=== PATIENT | male | born 2000 | race African-American/Black ===

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

== ENCOUNTER 2018-09-23 14:22 | Emergency (ER) | payer SELFPAY ==
[2018-09-23] MEDS ORDERED: HYDROCODONE/ACETAMINOPHEN 5-325 MG TABLET PO ONE ×2 (15:12→15:32)
--- NOTE | 2018-09-23 15:15 | ER Document Report ---
ED Medical Screen (RME) - General Chief Complaint: Penile Discharge Stated Complaint: TESTICULAR PAIN/SWELLING Time Seen by Provider: 09/23/18 15:06 Mode of Arrival: Ambulatory Information source: Patient TRAVEL OUTSIDE OF THE [place] IN LAST 30 DAYS: No - HPI Patient complains to provider of: LEFT TESTICULAR PAIN Notes: 09/23/18 15:14 Patient is here with complaints of penile discharge and left testicular pain. He states left testicular pain started approximately a week ago. He states that the testicle is swollen. A few days ago he started having some green discharge from his penis. No dysuria. No fever. States the pain is constant and moderate to severe. He denies any injury. He states that he has not been sexually active for 6 months. He does have a prior history of lymphoma which is currently in remission. Exam No distress, nontoxic-appearing. Lungs clear and equal throughout. Left testicle swollen, tender and hard to the touch. Circumcised penis, no lesions or obvious discharge at this time. Plan UA, gonorrhea chlamydia, ultrasound of the scrotum, [place] for pain control. An initial examination was made on the patient as part of the triage process, and it was determined a more comprehensive evaluation was necessary. Initial labs were ordered and patient was transferred to another provider in the ED who assumed care and finished evaluation and plan. - Related Data Allergies/Adverse Reactions: lorazepam [From Ativan] Adverse Reaction (Verified 09/23/18 14:27) ondansetron [From Zofran (as hydrochloride)] Adverse Reaction (Verified 09/23/18 14:27) Vomiting Past Medical History - Social History Chew tobacco use (# tins/day): No Frequency of alcohol use: None Drug Abuse: None Family history: Reviewed & Not Pertinent Pulmonary Medical History: Reports: Hx Asthma Neurological Medical History: Reports: Hx Migraine Renal/ Medical History: Denies: Hx Peritoneal Dialysis Malignancy Medical History: 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 GI Medical History: Reports: Hx Gastroesophageal Reflux Disease Psychiatric Medical History: Reports: Hx Bipolar Disorder, Hx Depression Past Surgical History: Reports: Hx Myringotomy, Hx Vascular Surgery - port central line, and removal of both - Immunizations Immunizations up to date: Yes Hx Diphtheria, Pertussis, Tetanus Vaccination: Yes Physical Exam - Vital signs Vitals: Temp Pulse Resp BP Pulse Ox 98.8 F 90 16 114/62 98 09/23/18 14:35 09/23/18 14:35 09/23/18 14:35 09/23/18 14:35 09/23/18 14:35 Course - Vital Signs Vital signs: Temp Pulse Resp BP Pulse Ox 98.8 F 90 16 114/62 98 09/23/18 14:35 09/23/18 14:35 09/23/18 14:35 09/23/18 14:35 09/23/18 14:35
[2018-09-23 16:06] LABS: AMORPHOUS SEDIMENT,URINE TRACE /HPF; APPEARANCE,URINE CLOUDY; BILIRUBIN,URINE NEGATIVE (NEGATIVE); COLOR,URINE YELLOW; GLUCOSE, URINE NEGATIVE (NEGATIVE); KETONES,URINE NEGATIVE (NEGATIVE); LEUKOCYTE ESTERASE,URINE LARGE (NEGATIVE); NITRITE,URINE NEGATIVE (NEGATIVE); PROTEIN,URINE 30 mg/dL (NEGATIVE); URINE SPECIFIC GRAVITY 1.018; UROBILINOGEN,URINE NEGATIVE mg/dL (<2.0)
--- NOTE | 2018-09-23 16:45 | RADIOLOGY REPORT (SQ) ---
EXAM DESCRIPTION: U/S SCROTUM W/DOPPLER COMPLETED DATE/TIME: 09/23/2018 4:31 pm REASON FOR STUDY: LEFT TESTICULAR PAIN AND SWELLING COMPARISON: None. TECHNIQUE: Static and realtime aguayo scale imaging of the scrotum and testes. Selected color Doppler and spectral images recorded to document blood flow. LIMITATIONS: None. FINDINGS: RIGHT: TESTICLE: Normal size. Normal echotexture. Normal blood flow. No mass. EPIDIDYMIS: Normal. HYDROCELE OR VARICOCELE: No. HERNIA OR EXTRA-TESTICULAR MASS: No. OTHER: No other significant finding. LEFT: TESTICLE: Normal size. Normal echotexture. Increased blood flow. No mass. EPIDIDYMIS: Normal size.Increased blood flow. HYDROCELE OR VARICOCELE: Small hydrocele. HERNIA OR EXTRA-TESTICULAR MASS: No. OTHER: No other significant finding. IMPRESSION: Hypervascularity of the left testicle and epididymis suggesting epididymitis -orchitis. Small left hydrocele. No evidence for torsion. TECHNICAL DOCUMENTATION: JOB ID: [id number] 2010 [employer]- All Rights Reserved Reading location - IP/workstation name: [employer]
[2018-09-23] MEDS ORDERED: CEFTRIAXONE INJ 250 MG VIAL IM ONE (17:11)
[2018-09-23] MEDS ORDERED: LIDOCAINE 1% INJ-PF (10 MG/ML) 30 ML SDV NEB ONE (17:11)
[2018-09-23] MEDS ORDERED: METRONIDAZOLE 500 MG TABLET PO ONE (17:12)
[2018-09-23] MEDS ORDERED: AZITHROMYCIN 250 MG TABLET PO ONE (17:12)
--- NOTE | 2018-09-23 17:18 | ER Document Report ---
ED General - General Chief Complaint: Penile Discharge Stated Complaint: TESTICULAR PAIN/SWELLING Time Seen by Provider: 09/23/18 15:06 Mode of Arrival: Ambulatory Information source: Patient TRAVEL OUTSIDE OF THE [place] IN LAST 30 DAYS: No - HPI Patient complains to provider of: Left testicular pain, urethral discharge, dysuria Onset: Last week Onset/Duration: Sudden Quality of pain: Sharp Severity: Severe Pain Level: 5 Associated symptoms: None. denies: Chills, Fever Exacerbated by: Denies Relieved by: Denies Similar symptoms previously: No Recently seen / treated by doctor: No Notes: 18-year-old -[place] male coming in today with swollen painful left testicle, greenish-yellowish discharge in his urine, lower back pain. No fevers or chills. No nausea or vomiting. Patient states he is currently celibate and has not had any sexual relations recently. No history of STDs in the past. - Related Data Allergies/Adverse Reactions: lorazepam [From Ativan] Adverse Reaction (Verified 09/23/18 14:27) ondansetron [From Zofran (as hydrochloride)] Adverse Reaction (Verified 09/23/18 14:27) Vomiting Past Medical History - General Information source: Patient - Social History Smoking Status: Unknown if Ever Smoked Chew tobacco use (# tins/day): No Frequency of alcohol use: None Drug Abuse: None Family History: Arthritis, CAD, CVA, DM, Hyperlipidemia, Hypertension, Malignancy, Thyroid Disfunction Patient has suicidal ideation: No Patient has homicidal ideation: No Pulmonary Medical History: Reports: Hx Asthma Neurological Medical History: Reports: Hx Migraine Renal/ Medical History: Denies: Hx Peritoneal Dialysis Malignancy Medical History: 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 Medical History: Reports: Hx Gastroesophageal Reflux Disease Psychiatric Medical History: Reports: Hx Bipolar Disorder, Hx Depression Past Surgical History: Reports: Hx Myringotomy, Hx Vascular Surgery - port central line, and removal of both - Immunizations Immunizations up to date: Yes Hx Diphtheria, Pertussis, Tetanus Vaccination: Yes Review of Systems - Review of Systems Notes: Constitutional: No fevers. No chills. EENT: No eye redness. No eye pain. No ear pain. No sore throat. Cardiovascular: No chest pain. No palpitations. Respiratory: No cough. No shortness of breath. No respiratory distress. Gastrointestinal: Lower abdominal pain. No nausea, vomiting, or diarrhea. Genitourinary: Positive for penile discharge, left testicular pain, left testicular swelling Musculoskeletal: Atraumatic. No swelling. No deformities. Skin: No rash or lesions. Lymphatic: No swollen lymph nodes. Neurologic: No headache. No syncope. Psychiatric: No suicidal or homicidal ideation. Physical Exam - Vital signs Vitals: Temp Pulse Resp BP Pulse Ox 98.8 F 90 16 114/62 98 09/23/18 14:35 09/23/18 14:35 09/23/18 14:35 09/23/18 14:35 09/23/18 14:35 - Notes Notes: General: Well-developed, well-nourished. In no acute distress. Non-toxic appearing. Cardiac: Well-perfused. Regular rate and rhythm. No murmurs, rubs, or gallops. Pulmonary: No respiratory distress. No cyanosis. Bilateral lung fiels are clear to auscultation. Abdominal: Non-distended. Non-rigid. Bowels sounds are present in all four quadrants. No guarding or rebound. HEENT: Head is atraumatic. Conjunctivae not reddened. No tearing. PERRL. EOMI. Orbits atraumatic. No periorbital swelling or erythema. Oropharynx is without erythema, swelling, or exudates. Neck: Supple. No adenopathy. No meningismus. Dermatologic: Warm with good turgor. No rash. Atraumatic. Chest: Atraumatic. No chest wall tenderness to palpation. Musculoskeletal: Moves all extremities well. No range of motion deficits. no muscular or joint tenderness. No paraspinal muscle tenderness. no midline spinal tenderness or step-off. Genitourinary: Scrotum examined. Left testicle markedly more swollen than right. Tender over the epididymis. Right testicle unremarkable. Penis unremar kable without lesions. No urethral discharge. No inguinal adenopathy. Neurologic: No gross neurologic deficits. Psychiatric: Normal mood. Course - Re-evaluation Re-evalutation: 09/23/18 17:15 GC and Chlamydia are pending. Given the history of a green-colored discharge will treat empirically for gonorrhea, chlamydia, and trichomonas. Because of the epididymitis on the ultrasound I will also send him home with a week of doxycycline and some naproxen to help with pain and swelling. I will refer him to the [facility] for further evaluation and recheck. - Vital Signs Vital signs: Temp Pulse Resp BP Pulse Ox 98.8 F 90 16 114/62 98 09/23/18 14:35 09/23/18 14:35 09/23/18 14:35 09/23/18 14:35 09/23/18 14:35 - Laboratory Laboratory results interpreted by me: 09/23/18 15:20 Urine Protein 30 H Urine Blood SMALL H Ur Leukocyte Esterase LARGE H Discharge - Discharge Clinical Impression: Urethritis, Orchitis and epididymitis Condition: Good Disposition: HOME, SELF-CARE Instructions: Doxycycline ([facility]), Epididymitis ([facility]), Urethritis ([facility]) Additional Instructions: You can use cool packs to help with the swelling in the testicle. You need to take prescription doxycycline twice a day for a week until all pills are used up. Naproxen sodium as needed for pain and swelling of the testicle. I want to get this urine rechecked in 1 week at the [facility]. Prescriptions: Doxycycline Hyclate 100 mg PO BID #14 capsule Naproxen 500 mg PO BID 7 Days #14 tablet Forms: Return to Work Referrals: [facility] [Provider Group] - 09/29/18
[2018-09-23 17:28] LABS: CHLAM PCR NOT DETECTED (NOT DETECT); GON PCR NOT DETECTED (NOT DETECT)
[2018-09-23 17:46] VITALS: BP 96/60
== END 2018-09-23 17:54 | disposition home or self-care (01) ==
LOC: ER 14:22
DX: N34.2 Other urethritis (principal); N45.3 Epididymo-orchitis; N50.812 Left testicular pain; M54.5 Low back pain; R10.30 Lower abdominal pain, unspecified; J45.909 Unspecified asthma, uncomplicated; Z85.71 Personal history of Hodgkin lymphoma
CPT/HCPCS: 99284; 96372; 81001; 87491; 87591; 76870; 93976; J3490; J0696

== ENCOUNTER 2019-04-07 12:45 | Emergency (ER) | payer SELFPAY ==
[2019-04-07] MEDS ORDERED: ACETAMINOPHEN 325 MG TABLET PO ONE (13:05)
[2019-04-07] MEDS ORDERED: LIDOCAINE 2% VISCOUS SOLN 20 ML UDCUP PO ONE (13:05)
[2019-04-07] MEDS ORDERED: IBUPROFEN 600 MG TABLET PO ONE (13:05)
[2019-04-07] MEDS ORDERED: PENICILLIN V POTASSIUM 500 MG TABLET PO ONE (13:05)
--- NOTE | 2019-04-07 13:07 | ER Document Report ---
HPI - HPI Time Seen by Provider: 04/07/19 12:54 Pain Level: 4 Context: 19-year-old healthy male presents the emergency department with dental pain of the #18 and 19 teeth that started 4 days ago. Patient states that the pain got acutely worse this morning prompting him to get seen. Patient states he has been missing work as a result. Patient denies any trismus, denies any foul taste in his mouth, denies fevers or chills, denies any tongue or throat swelling, denies neck stiffness. Patient has not seen a dentist for this problem - REPRODUCTIVE Reproductive: DENIES: : Past Medical History - Social History Smoking Status: Never Smoker Chew tobacco use (# tins/day): No Frequency of alcohol use: None Drug Abuse: None Family History: Arthritis, CAD, CVA, DM, Hyperlipidemia, Hypertension, Malignancy, Thyroid Disfunction Patient has suicidal ideation: No Patient has homicidal ideation: No Pulmonary Medical History: Reports: Hx Asthma Neurological Medical History: Reports: Hx Migraine Renal/ Medical History: Denies: Hx Peritoneal Dialysis Malignancy Medical History: 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 Medical History: Reports: Hx Gastroesophageal Reflux Disease Psychiatric Medical History: Reports: Hx Bipolar Disorder, Hx Depression Past Surgical History: Reports: Hx Myringotomy, Hx Vascular Surgery - port central line, and removal of both - Immunizations Immunizations up to date: Yes Hx Diphtheria, Pertussis, Tetanus Vaccination: Yes Vertical Provider Document - CONSTITUTIONAL Notes: PHYSICAL EXAMINATION: Reviewed vital signs and charting by RN GENERAL: Alert, interacts well. No acute distress. HEAD: Normocephalic, atraumatic. EYES: Pupils equal and round. Extraocular movements intact. ENT: Oral mucosa moist, tongue midline. #19 tooth broken on the posterior lingual aspect with decay, mild gingival inflammation localized to the #18 and 19 teeth NECK: Full range of motion. Trachea midline. EXTREMITIES: Moves all 4 extremities spontaneously. No edema, No cyanosis. PSYCH: Normal affect, normal mood. SKIN: Warm, dry, normal turgor. No rashes or lesions noted. - INFECTION CONTROL TRAVEL OUTSIDE OF THE [place] IN LAST 30 DAYS: No Course - Re-evaluation Re-evalutation: 04/07/19 13:03 Presentation is most consistent with likely an infected tooth. Airway is patent. Vitals within normal limits. Patient is able swallow without any difficulty. There is no significant facial swelling. No evidence of Vern angina, apical abscess, or airway obstruction. Patient will be started on antibiotics. I've instructed to follow-up with dentistry as earliest ability for definitive management. At this time will discharge with return precautions and follow-up recommendations. Verbal discharge instructions given a the bedside and opportunity for questions given. Medication warnings reviewed. Patient is in agreement with this plan and has verbalized understanding of return precautions and the need for primary care follow-up in the next 24-72 hours. - Vital Signs Vital signs: Temp Pulse Resp BP Pulse Ox 97.7 F 75 16 95/64 L 100 04/07/19 12:52 04/07/19 12:52 04/07/19 12:52 04/07/19 12:52 04/07/19 12:52 Discharge - Discharge Clinical Impression: Tooth pain Condition: Good Disposition: HOME, SELF-CARE Additional Instructions: You have been seen for dental pain. It is very important that you follow-up with a dentist for definitive care. You have been prescribed antibiotics for 1 week. Please take them until they are gone. Please take ibuprofen 600 mg every 6 hours with food and/or milk and Tylenol 1000 mg every 6 hours for pain. Please return if you develop fever greater than 101, swelling in your face, vomiting, difficulty breathing or swallowing, or any other symptoms that are concerning to you. For pain you should take ibuprofen 600 mg every 6 hours as needed. Prescriptions: Penicillin V Potassium [Penicillin Vk 500 mg Tablet] 500 mg PO BID #14 tablet Forms: Return to Work
[2019-04-07 14:02] VITALS: BP 100/56
== END 2019-04-07 14:06 | disposition home or self-care (01) ==
LOC: ER 12:45
DX: K08.89 Other specified disorders of teeth and supporting structures (principal); J45.909 Unspecified asthma, uncomplicated
CPT/HCPCS: 99282; J3490

== ENCOUNTER 2019-05-06 09:47 | Emergency (ER) | payer SELFPAY ==
[2019-05-06 09:58] VITALS: BP 136/50
[2019-05-06] MEDS ORDERED: LIDOCAINE 2% VISCOUS SOLN 20 ML UDCUP PO ONE (11:16)
--- NOTE | 2019-05-06 11:19 | ER Document Report ---
HPI - HPI Patient complains to provider of: dental pain Time Seen by Provider: 05/06/19 11:11 Onset: Other - a few days ago Quality of pain: Achy, Throbbing Pain Level: 4 Context: This 19-year-old male presents emergency department with complaints of dental pain right lower tooth for the last couple days. Reports he did have this pain in the same tooth before and never followed up with a dentist. Reports very sensitive to heat or cold or air. Denies fever vomiting diarrhea. Patient rep orts he does have dental insurance. Associated Symptoms: Other - air, sensitive to heat/cold Exacerbated by: Denies Relieved by: Denies Similar symptoms previously: No Recently seen / treated by doctor: No - REPRODUCTIVE Reproductive: DENIES: : Past Medical History - General Information source: Patient - Social History Smoking Status: Never Smoker Chew tobacco use (# tins/day): No Frequency of alcohol use: None Drug Abuse: None Family History: Arthritis, CAD, CVA, DM, Hyperlipidemia, Hypertension, Malignancy, Thyroid Disfunction Patient has suicidal ideation: No Patient has homicidal ideation: No Pulmonary Medical History: Reports: Hx Asthma Neurological Medical History: Reports: Hx Migraine Renal/ Medical History: Denies: Hx Peritoneal Dialysis Malignancy Medical History: 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 Medical History: Reports: Hx Gastroesophageal Reflux Disease Psychiatric Medical History: Reports: Hx Bipolar Disorder, Hx Depression Past Surgical History: Reports: Hx Myringotomy, Hx Vascular Surgery - port central line, and removal of both - Immunizations Immunizations up to date: Yes Hx Diphtheria, Pertussis, Tetanus Vaccination: Yes Vertical Provider Document - CONSTITUTIONAL Agree With Documented VS: Yes Exam Limitations: No Limitations General Appearance: WD/WN, No Apparent Distress - INFECTION CONTROL TRAVEL OUTSIDE OF THE [place] IN LAST 30 DAYS: No - HEENT HEENT: Atraumatic, Normocephalic. negative: Conjuctival Injection, Pharyngeal Erythema, Tympanic Membrane Bulging Mouth Diagram: 1 - c/o dental pain, opens well fluoride clear voice no trismus no Vern's no erythema no swelling no pustule, slight facial swelling to the right lower jaw. - NECK Neck: Normal Inspection, Supple. negative: Lymphadenopathy-Left, Lymphadenopathy-Right - RESPIRATORY Respiratory: Breath Sounds Normal, No Respiratory Distress - CARDIOVASCULAR Cardiovascular: Regular Rate, Regular Rhythm - GI/ABDOMEN Gastrointestinal: Abdomen Soft - MUSCULOSKELETAL/EXTREMETIES Musculoskeletal/Extremeties: RICARDO, PABLITO - NEURO Level of Consciousness: Awake, Alert, Appropriate Motor/Sensory: No Motor Deficit - DERM Integumentary: Warm, Dry Course - Re-evaluation Re-evalutation: 05/06/19 20:16 Patient was prescribed penicillin for dental pain also given lidocaine to numb the tooth. Patient was instructed on the importance of follow-up with the denti st. He was instructed that this was not fixing his problem he really needed to see a dentist. He verbalized understanding to all instructions. Dictation of this chart was performed using voice recognition software; therefore, there may be some unintended grammatical errors. - Vital Signs Vital signs: Temp Pulse Resp BP Pulse Ox 98.4 F 75 20 136/50 H 100 05/06/19 11:11 05/06/19 09:57 05/06/19 11:11 05/06/19 09:57 05/06/19 11:11 Discharge - Discharge Clinical Impression: Tooth pain Condition: Stable Disposition: HOME, SELF-CARE Instructions: [facility], Penicillin V K ([facility]), Toothache ([facility]) Additional Instructions: *You have been evaluated for dental pain *Take medications as prescribed, Apply lidocaine to the tooth as indicated for pain *Follow up with dentist this week *Return to ED for worsening condition, changes, needs Monitor your blood pressure. Your blood pressure was elevated today. This may be because you were anxious, in pain or because you need medication. It is important to follow up with your primary care provider for full evaluation. Prescriptions: Penicillin V Potassium [Penicillin Vk 500 mg Tablet] 500 mg PO BID #20 tablet Forms: Elevated Blood Pressure
== END 2019-05-06 11:25 | disposition home or self-care (01) ==
LOC: ER 09:47
DX: K08.89 Other specified disorders of teeth and supporting structures (principal); J45.909 Unspecified asthma, uncomplicated
CPT/HCPCS: 99282; J3490